=== PATIENT | male | born 1940 | race Caucasian/White ===

== ENCOUNTER 2017-10-22 07:29 | Outpatient (CLI) | payer MEDICARE ==
--- NOTE | 2017-10-22 13:38 | MRI ---
MRI OF THE RIGHT SHOULDER: 10/22/2017 PROVIDED CLINICAL HISTORY: Right shoulder pain. FINDINGS: There is full-thickness, full-width, retracted tearing of the supraspinatus tendon, with retraction t o about the level of the glenohumeral joint. There is extension to involve the anterior fibers of th e infraspinatus, in a full-thickness, partial-width manner. There is high-grade, partial-thickness, undersurface tearing involving the subscapularis tendon, involving about half of the width of the ten don at its cranial margin. There is supraspinatus muscular volume loss. There is a moderate glenohumeral joint effusion, which really communicates with the subacromial, subd eltoid bursa, via the rotator cuff defect. Acromioclavicular joint osteoarthrosis is noted. Subchon dral cyst formation is seen at the posterior-superior glenoid. The intraarticular portion of the yudith g-head biceps tendon is not distinctly identified. An attenuated biceps tendon is seen within the bi cipital groove. Degenerative cartilage thinning involves the glenohumeral joint without a focal full-thickness defect apparent. No evidence for a displaced labral tear. No focal concerning regional marrow or muscular signal abnormality is apparent. IMPRESSION: 1. Tears of the supraspinatus, infraspinatus, and subscapularis, as described above. Supraspinatus muscular volume loss without apparent fatty infiltration. 2. At least high-grade, partial-thickness, if not full-thickness, disruption of the intraarticular l onghead biceps tendon. 3. Moderate glenohumeral joint effusion. 4. Degenerative glenohumeral chondrosis. 5. Acromioclavicular joint osteoarthrosis. POS: [facility]
== END 2017-10-22 07:30 | disposition home or self-care (01) ==
LOC: MRI 07:29
PROVIDERS: ATTEND Family Medicine Sports Medicine
DX: M75.101 Unspecified rotator cuff tear or rupture of right shoulder, not specified as traumatic (principal); S46.011A Strain of muscle(s) and tendon(s) of the rotator cuff of right shoulder, initial encounter